=== PATIENT | female | born 1965 | race Caucasian/White ===

== ENCOUNTER 2021-08-31 09:22 | Outpatient (CLI) | payer OTHER, SELFPAY ==
[2021-09-01 10:51] LABS: Follicle Stimulating Hormone 73.9 IU/L
[2021-09-02 01:21] LABS: Prolactin 6.4 ng/mL (2.8-29.2)
== END 2021-08-31 09:23 | disposition home or self-care (01) ==
PROVIDERS: PCP Family Medicine; Visit Provider Registered Nurse
DX: N93.9 Abnormal uterine and vaginal bleeding, unspecified (principal); R93.89 Abnormal findings on diagnostic imaging of other specified body structures; N83.201 Unspecified ovarian cyst, right side
CPT/HCPCS: 83001; 84146; 84443

== ENCOUNTER 2021-09-05 15:00 | Outpatient (CLI) | payer OTHER, SELFPAY ==
--- NOTE | 2021-09-05 15:00 | CRLHL7_ITS ---
For Patients: As a result of the Century Cures Act, medical imaging exams and procedure reports are released immediately into your electronic medical record. You may view this report before your referring provider. If you have questions, please contact your health care provider. INDICATION: Irregular uterine and vaginal bleeding COMPARISON: none TECHNIQUE: 2D mohr scale and color Doppler images were acquired of the pelvis using a transabdominal and transvaginal approach. Examination was technically difficult due to incomplete bladder distension on the transabdominal exam and shadowing on the transvaginal exam. FINDINGS: Sonographic images demonstrate a normal size and smooth outer contour of the uterus. Uterus measures 8.3 cm in length by 5.1 cm in AP diameter by 5.8 cm in transverse dimension. The myometrium has a heterogeneous echotexture. Small left-sided intramural fibroid is present measuring 1 centimeter. The endometrial lining appears thickened and heterogeneous and measures 13 mm in composite thickness. Hypoechoic cervical nabothian cyst is present measuring 8 millimeters. Ill-defined area of increased echogenicity within the left endocervix measuring 1.1 x 2.2 x 2.0 cm. The right ovary measures 3.9 x 3.1 x 3.1 cm in size and the left ovary is not visualized. The right ovary demonstrates normal arterial and venous blood flow on color Doppler analysis. Right ovarian cysts are present measuring 2.2 cm and 1.7 cm. There are no suspicious fluid collections within the cul-de-sac. IMPRESSION: Thickened and heterogeneous endometrium measuring 13 millimeters. Ill-defined area of increased echogenicity within the left endocervical region measuring 2.2 cm. Recommend correlation with Pap smear. Incidental complex right-sided cervical nabothian cyst, small left mid uterine intramural fibroid and right ovarian cysts. Dictated by Shaquille Celeste MD @ 09/05/2021 4:10:41 PM (Electronically Signed)
== END 2021-09-05 15:01 | disposition home or self-care (01) ==
LOC: US 15:01
PROVIDERS: PCP Family Medicine; Visit Provider Registered Nurse
DX: N93.9 Abnormal uterine and vaginal bleeding, unspecified (principal); R93.89 Abnormal findings on diagnostic imaging of other specified body structures; D25.1 Intramural leiomyoma of uterus; N83.201 Unspecified ovarian cyst, right side
CPT/HCPCS: 76830; 76856

== ENCOUNTER 2021-09-22 10:40 | Outpatient (CLI) | payer OTHER, SELFPAY | END 2021-09-22 10:41 | disposition home or self-care (01) | LOC: LONREF 10:41 | PROVIDERS: PCP Family Medicine; Visit Provider Obstetrics & Gynecology | DX: R31.9 Hematuria, unspecified (principal) | CPT/HCPCS: 87086 ==

== ENCOUNTER 2021-10-06 07:27 | Day surgery (SDC) | payer OTHER, SELFPAY ==
[2021-10-06 07:48] LABS: Ur HCG Qualitative* Negative (Negative)
[2021-10-06 07:50] VITALS: BP 118/80; PULSE 67; RESP 16; TEMP 36.9; O2SAT 97
[2021-10-06 07:51] VITALS: BMI 31.8
[2021-10-06] MEDS: LACTATED RINGERS 1000 ML 1,000 ML 100 ML IV (08:00)
[2021-10-06] MEDS: SODIUM CHLORIDE 0.9 % (FLUSH) 10 ML SYRINGE IVF (08:03)
--- NOTE | 2021-10-06 09:45 | W.PM.GYNPROC ---
Procedure Note Date Seen: 10/06/21 Procedure Details: PREOPERATIVE DIAGNOSIS: 1. Abnormal uterine bleeding 2. Thickened endometrial lining by ultrasound POSTOPERATIVE DIAGNOSIS: 1. Abnormal uterine bleeding 2. Thickened endometrial lining by ultrasound NAME OF PROCEDURE: 1. Hysteroscopy. 2. D and C 3. TruCkear Polypectomy. SURGEON: Rafael. ANESTHESIA: Monitored anesthesia care and paracervical block. COMPLICATIONS: None.. ESTIMATED BLOOD LOSS: <10 mL. FINDINGS: Thickened polypoid-appearing endometrium along the anterior and posterior aspects of the endometrial cavity. PATHOLOGY SPECIMENS: 1. Endometrial tissue obtained with the TruClear morcellator and curettage, sent as a single specimen. PROCEDURE: After obtaining informed consent, the patient was taken to the operating room where she received monitored anesthesia care. She was prepared and draped in the normal sterile fashion, in the dorsal lithotomy position. An open-sided bivalve speculum was introduced into the vagina and the cervix visualized. The anterior lip of the cervix was grasped with a single-tooth tenaculum for traction. A paracervical block was then administered using a total of 20 mL of a 50/50 mixture of 0.25% Marcaine and 1% lidocaine plain. The uterus was gently sounded. Sound length was 7 cm. The cervix was gently dilated to a # 6 Hegar dilator. A hysteroscope was then advanced under direct visualization through the cervix into the uterine cavity. Sterile normal saline was used as distending medium. The uterine cavity was carefully inspected with the findings noted above. Pictures were taken for documentation purposes. The TruClear soft tissue mini morcellator was inserted through the operating channel in the hysteroscope. The morcellator was used to remove the anterior and posterior polypoid in its entirety. The hysteroscope was then removed. The endometrial lining was then sharply curetted. The hysteroscope was removed. The tenaculum was removed. There was little bleeding from the tenaculum site, which was controlled with direct pressure sponge stick. All instruments were then removed. The patient tolerated the procedure well. Sponge, lap, needle, and instrument counts reported as correct x2. The patient was taken to the recovery room awake in a stable condition.
[2021-10-06] MEDS: BUPIVACAINE 0.25% 30 ML 10 ML INJECTION (10:23)
[2021-10-06] MEDS: LIDOCAINE 1% 20 ML VIAL 10 ML INJECTION (10:23)
--- NOTE | 2021-10-06 10:34 | SUR.OPER ---
Patient positioned supine on OR #4 bed. Pt. legs then moved into the lithotomy position for the procedure. Perioperative team supported arms bilaterally on arm boards. ?Final approval of positioning by surgeon. Continuous irrigation of the uterus with saline during the procedure.
[2021-10-06 10:45] VITALS: BP 130/84; PULSE 54; RESP 16; TEMP 36.4; O2SAT 99
--- NOTE | 2021-10-06 10:45 | W.ANESCHARGE ---
Anesthesia Charges Start Date/Time Anesthesia Start Date: 10/06/21 Anesthesia Start Time: 09:52 Stop Date/Time Anesthesia Stop Date: 10/06/21 Anesthesia Stop Time: 10:45 Summary Emergency: No
--- NOTE | 2021-10-06 10:50 | W.ANESCHARGE ---
Anesthesia Charges Start Date/Time Anesthesia Start Date: 10/06/21 Anesthesia Start Time: 09:52 Stop Date/Time Anesthesia Stop Date: 10/06/21 Anesthesia Stop Time: 10:45 Summary Emergency: No
[2021-10-06 11:00] VITALS: BP 118/79; PULSE 52; RESP 16; O2SAT 99
[2021-10-06 11:15] VITALS: BP 106/82; PULSE 56; RESP 16; O2SAT 99
== END 2021-10-06 11:38 | disposition home or self-care (01) ==
PROVIDERS: PCP Family Medicine; Visit Provider Obstetrics & Gynecology
PROC: 0UDB8ZZ Extraction of Endometrium, Via Natural or Artificial Opening Endoscopic (ICD-10-PCS; CPT 58558; principal; 2021-10-06 08:55)
DX: N93.8 Other specified abnormal uterine and vaginal bleeding (principal); N84.0 Polyp of corpus uteri; R93.89 Abnormal findings on diagnostic imaging of other specified body structures
CPT/HCPCS: 58558; 81025; 88305; 952; J1100; J1885; J2250; J2405; J2704; J3010; J3490; J7120

== ENCOUNTER 2021-10-23 14:16 | Outpatient (CLI) | payer OTHER, SELFPAY ==
--- OUTSIDE RECORDS SUMMARY | 2021-10-23 08:05 | XMS_ITS | Clinical Summary ---
:1965 Author Organization [employer] [place] [address] Care Team Providers Name Role Phone Rohit Alejo MD Primary Care Provider [phone] Allergies Active Allergy Reactions Severity Noted Date Comments Doxycycline Rash 04/30/2006 Medications Medication Sig Dispensed Refills Start Date End Date Status acetaminophen Take 1 tablet by 60 tablet 0 10/28/2009 Active (TYLENOL EXTRA mouth every 6 hours STRGTH) 500 mg if needed. Max tabletIndications: acetaminophen dose: Pain in joint, 4000mg in 24 hrs. pelvic region and thigh ergocalciferol Take 1 capsule by 12 capsule 3 02/15/2011 Active (VITAMIN D) 50,000 mouth once weekly. unit One tablet weekly capsuleIndications: for 8 weeks, then Vitamin D deficiency monthly thereafter citalopram (CELEXA) Take 1.5 tablets by 45 tablet 0 08/27/2012 Active 10 mg mouth every tabletIndications: morning. TAKE 1 AND Anxiety state, 1/2 TABLET DAILY unspecified, Major depressive disorder, recurrent episode, unspecified buPROPion Take 3 tablets by 90 tablet 0 08/29/2012 A ctive (WELLBUTRIN XL) 150 mouth every mg Extended-Release morning. tabletIndications: Anxiety state, unspecified, Major depressive disorder, recurrent episode, unspecified Active Problems Problem Noted Date Major depressive disorder, recurrent episode, unspecif ied 08/07/2011 Vitamin D deficiency 04/21/2010 Pain in joint, pelvic region and thigh 10/28/2009 CKD (chronic kidney disease) stage 3, GFR 30-59 ml/min 10/24/2009 Premenstrual tension syndromes 09/30/2007 Anxiety state, unspecified Resolved Problems Problem Noted Date Resolved Date Dysthymia 11/05/2008 04/18/2010 Depressive disorder, not elsewhere classified 08/07/2011 Encounters Date Type Specialty Care Team Description 10/06/2021 Lab Requisition Tila Hall MD 08/31/2021 Lab Requisition Valery Sewell NP 08/31/2021 Lab Requisition Valery Sewell NP from Last 3 Months Immunizations Name Administration Dates Next Due Td (Age >=7 Years) 03/29/2006 Family History Medical History Relation Name Comments Arthritis Father Psychiatric illness Father Other Maternal Aunt Psychiatric illness Maternal Grandfather Psychiatric illness Maternal Grandmother Psychiatric illness Mother Diabetes Paternal Grandfather Psychiatric illness Paternal Grandfather Arthritis Paternal Grandmother Psychiatric illness Paternal Grandmother Diabetes Paternal Uncle Psychiatric illness Sister 1 Cancer-breast Sister 2 age 38 Psychiatric illness Son Relation Name Status Comments Father Maternal Aunt Maternal Grandfather Maternal Grandmother Mother Paternal Grandfather Paternal Grandmother Paternal Uncle Sister 1 Sister 2 Son Social History Tobacco Use Types Packs/Day Years Used Date Never Smoker Smokeless Tobacco: Never Used Tobacco Cessation: Counseling Given: Yes Alcohol Use Standard Drinks/Week Comments No 0 (1 standard drink = 0.6 oz pure alcoho l) Sex Assigned at Date Recorded Not on file Obstetrics History Para Term AB IAB SAB Ectopic Multiple Living Live Births 2 2 Date Outcome GA Total Labor/2nd/3rd Weight Sex Delivery Anes PTL Allison A 1 A5 Name Clin Labor Para Para Last Filed Vital Signs Vital Sign Reading Time Taken Comments Blood Pressure 118/75 10/08/2013 3:54 PM CDT tower Pulse 79 10/08/2013 3:54 PM CDT Temperature 36.8 ??C (98.2 ??F) 10/08/2013 3:54 PM CDT Respiratory Rate - - Oxygen Saturation 99% 10/08/2013 3:54 PM CDT Inhaled Oxygen Concentration - - Weight 77.5 kg (170 lb 14.4 oz) 10/08/2013 3:54 PM CDT Height 165.1 cm (5' 5) 10/08/2013 3:54 PM CDT Body Mass Index 28.44 10/08/2013 3:54 PM CDT Plan of Treatment Health Maintenance Due Date Last Done Comments COVID-19 vaccine series (#1) 01/08/1968 Tdap 07/07/1978 Depression screening for age 12+ 1979 BMI (ht and wt on same day) for 07/07/1985 age 18+ Hepatitis C screening for age 0507/07/1985 18-79 Colonoscopy through age 75 07/07/2012 Mammogram for age 45-75 07/07/2012 04/18/2010, 10/15/2008, 10/08/2006 Lipids for age 45-75 10/20/2014 10/20/2009, 10/15/2008 Tetanus booster 03/29/2016 03/29/2006 Zoster (shingles) series for age 0507/07/2017 50+ (1 of 2) Influenza for age 50-64 10/26/2021 Pap test for age 21-65 08/31/2024 08/31/2021, 08/31/2021, 05/11/2015, Additional history exists Procedures Procedure Name Priority Date/Time Associated Diagnosis Comme nts LAB TRACKING EVENT Routine 10/06/2021 10:26 AM CDT PATH TISSUE EXAM Routine 10/06/2021 10:26 AM Resu lts for this CDT procedure are i n the results section. LAB TRACKING EVENT Routine 08/31/2021 12:00 PM CDT ASSISTANT PROFESSOR OF GEOGRAPHY THIN PREP PAP Routine 08/31/2021 12:00 PM Res ults for this SCREEN IMAGED CDT procedure are in the results section. HPV THIN PREP Routine 08/31/2021 12:00 PM Results for this CDT procedure are i n the results section. LAB TRACKING EVENT Routine 08/31/2021 9:15 AM CDT PATH TISSUE EXAM Routine 08/31/2021 9:15 AM Resul ts for this CDT procedure are i n the results section. from Last 3 Months Results LAB TRACKING EVENT (10/06/2021 10:26 AM CDT)Only the most recent of3 results within the time period is included. Specimen Anatomical Collection Method Collection Time Receive d Time (Source) Location / / Volume Laterality Other (Other) Client Collect / 10/06/2021 10:26 2021 9:55 Unknown AM CDT PM CDT Tila Hall MD LAB BILL ONLY Performing Organization Address City/State/ZIP Code Phon e Number [employer] [address] [place] [address] LABORATORY-CENTRAL 1999 LABORATORY PATH TISSUE EXAM (10/06/2021 10:26 AM CDT)Only the most recent of2 resultswithin the time period is included. Component Value Ref Test Analysis Performed At [facility] gist Range Method Time Signature Case Report Pathology Report ?Case: [id number] ? 10/09/2021 [facility] Authorizing Provider: ??Supp es, Tila Raymond MD ?Collected: ? 10/06/2021 1026 ? 3:25 PM CDT HEALTH Ordering Location: ? [facility] ?Received: ?10/07/2021 0820 ? GER HANSEN Pathologist: ? Kyung Lay MD ? ENTRAL Specimen: ?Endometrial C urettings ? LABORATORY Final A) ENDOMETRIUM, CURETTAGE: 10/09/2021 [facility] JAYMIE Electronically Diagnosis 1. Fragments of benign endometrial polyp(s) 3:25 PM CDT HEALTH signed by Rosanne, 2. Background inactive endometrium LABORATORY-C Kyung Farris, 3. Negative for atypia and malignancy ENTRAL MD on 10/09/2021 LABORATORY at 3:25 P M Clinical Abnormal 10/09/2021 [facility] Information uterine 3:25 PM CDT HEALTH bleeding. LABORATORY-C Thickened ENTRAL endometrial LABORATORY lining by ultrasound. Hysteroscopy demonstrated following: Thickened polypoid appearing endometrium on the anterior and posterior aspects of the endometrial cavity. Endometrial tissue obtained with the TruClear morcellator and curettage, sent as a single specimen. Gross A) Received in formalin, lab eled with the patient's name and endometrial curettings, is a 1.7 x 0.8 x 0.1 cm aggregate of pink-georges mucosa admixed with clotted blood and mucous. The specimen is entirely submitted in one cassette. 10/09/2021 [facility] Description 3:25 PM CDT HEALTH DS 10/07/2021 LABORATORY-C ENTRAL LABORATORY Microscopic The final diagnosis is based on microscopic examination of appropriate sections of all specimens. 10/09/2021 [facility] Description 3:25 PM [facility] LABORATORY-C ENTRAL LABORATORY Additional 10/09/2021 [facility] Information Interpreted at [facility], Central Laboratory - [address], [place] [address] 3:25 PM [facility] LABORATORY-C [facility] LABORATORY Specimen Anatomical Collection Method Collection Time Receive d Time (Source) Location / / Volume Laterality Other 10/06/2021 10:26 10/07/2021 8:20 (Endometrial AM CDT AM CDT Curettings) Tila Hall MD PATHOLOGY/CYTOLOGY Performing Organization Address City/State/ZIP Code Phon e Number [facility] [employer] [address] [place] [address] LABORATORY-CENTRAL 2000 LABORATORY ASSISTANT PROFESSOR OF GEOGRAPHY THIN PREP PAP SCREEN IMAGED (08/31/2021 12:00 PM CDT) Component Value Ref Test Analysis Performed At [facility] Range Method Time Signature Case Report Gynecologic Cytology Report ? Case: [id number] ? 09/18/2021 [facility] Authorizing Provider: ??Valery Shaw NP ?? Collected: ? 08/31/2021 1200 ? 1:08 PM HEALTH Ordering Location: ? [facility] CENTRAL LAB ?Received: ?08/31/2021 1911 ? CDT [place] BORATORY-C First Screen: ? Russ Rayo ? ENTRAL Rescreen: ?Celeste Whelan ? LABORATORY Specimen: ?ASSISTANT PROFESSOR OF GEOGRAPHY ThinPrep Vial Screening, Cervical ? INTERPRETATI NEGATIVE FOR (none) 09/18/2021 [facility] Evelyn ctronically ON/RESULT INTRAEPITHELIAL 1:08 PM HEALTH sign ed by LESION OR CDT LABORATORY-C Celeste Whelan on MALIGNANCY (NIL) ENTRAL 08/26 at LABORATORY 1:08 PM SPECIMEN Satisfactory for evaluation 09/18/2021 [facility] ADEQUACY Endocervical component present 1:08 PM HEALTH CDT LABORATORY-C ENTRAL LABORATORY HPV REQUEST HPV and PAP 09/18/2021 [facility] 1:08 PM HEALTH CDT LABORATORY-C ENTRAL LABORATORY Date of LMP 08/17/2021 09/18/2021 [facility] 1:08 PM HEALTH CDT LABORATORY-C ENTRAL LABORATORY Last Pap 05/11/2015 09/18/2021 [facility] Date 1:08 PM HEALTH CDT LABORATORY-C ENTRAL LABORATORY Last Pap NIL 09/18/2021 [facility] Result 1:08 PM HEALTH CDT LABORATORY-C ENTRAL LABORATORY Abnormal Pap No 09/18/2021 [facility] or Angela Bx 1:08 PM HEALTH in last 5 CDT LABORATORY-C years ENTRAL LABORATORY Menstrual Irregular Periods 09/18/2021 [facility] 1:08 PM HEALTH CDT LABORATORY-C ENTRAL LABORATORY Comment: postmenopausal Angela Bx Done Today No 09/18/2021 1:08 PM CD T [facility] LABORATORY-CENTRAL L ABORATORY Additional Information 09/18/2021 1:08 P M CDT [facility] LABORATORY-CENTRAL L ABORATORY Comment: Interpreted at [facility], Central Laboratory - [address], [place] [address] Automated Review Successful 09/18/2021 1:08 PM CDT [facility] LABORATORY-CENTRAL L ABORATORY Comment: Specimen processed successfully by automated mail clerk bills device, ThinPrep Imaging System, [employer] ANCILLARY TESTING HPV Ordered, 09/18/2021 1:08 PM [facility] ASSISTANT PROFESSOR OF GEOGRAPHY Please see T LABORATORY-CENTRAL separate report LABORATORY Note The pap test is a 09/18/2021 1:08 PM [facility] screening CDT LABORATORY-CENTRAL technique, not a LABORATORY diagnostic procedure. It is used primarily to screen for squamous cancers and precursor lesions. Published studies have shown that it is subject to both false negative and false positive results. The pap test should not be used as the sole means to diagnose or exclude pre-malignant and malignant lesions. Specimen Anatomical Collection Method Collection Time Receive d Time (Source) Location / / Volume Laterality Other (Cervical) 08/31/2021 12:00 022 7:11 PM CDT PM CDT Valery Sewell NP PATHOLOGY/CYTOLOGY Performing Organization Address City/State/ZIP Code Phon e Number [facility] [address] [place] [address] LABORATORY-CENTRAL 2000 LABORATORY HPV HIGH RISK (08/31/2021 12:00 PM CDT) Analysis Performed At Patho logist Time Signature TYPE 16 Negative Negative 09/04/2021 [facility] 2:40 PM CDT LABORATORY-YAIR TRAL LABORATORY TYPE 18 Negative Negative 09/04/2021 [facility] 2:40 PM CDT LABORATORY-YAIR TRAL LABORATORY OTHER HIGH Negative Negative 09/04/2021 [facility] RISK TYPES 2:40 PM CDT LABORATORY-YAIR TRAL LABORATORY Specimen Anatomical Collection Method Collection Time Receive d Time (Source) Location / / Volume Laterality Other (Cervical) 08/31/2021 12:00 022 7:11 PM CDT PM CDT Narrative [facility] LABORATORY-CENTRAL LABORAT ORY - 09/04/2021 2:40 PM CDT HPV types 16, 18, 31, 33, 35, 39, 45, 51, 52, 56, 58, 59, 66 and 68 DNA were undetectable or below the pre-set threshold. Methodology: [employer] Laura 4800 HPV Test Valery Sewell NP MICROBIOLOGY Performing Organization Address City/State/ZIP Code Phon e Number [employer] [address] [place] [address] LABORATORY-CENTRAL 2000 LABORATORY from Last 3 Months Care Teams Transplant Nurse Practitioner Relationship Specialty Start Date End Date Rohit Alejo MD PCP - General Family Practice 01/26/11 [address] [place] [address]
[2021-10-23 09:37] LABS: Albumin* 3.9 g/dL (3.3-5.0); Chloride* 106 mmol/L (96-114)
[2021-10-23 09:38] LABS: Potassium* 4.4 mmol/L (3.6-5.1); Sodium* 140 mmol/L (135-149)
[2021-10-23 09:40] LABS: Aspartate Amino Transferase* 23 U/L (12-35); Bilirubin Total* 0.5 mg/dL (0.1-1.5); Blood Urea Nitrogen* 20 mg/dL (7-30); Carbon Dioxide* 25 mmol/L (20-32); Cholesterol* 241 mg/dL (90-199); Creatinine* 1.3 mg/dL (0.5-1.5); Estimated Glomerular Filt Rate 49 ml/min; Total Protein* 6.7 g/dL (6.0-8.3)
[2021-10-23 09:41] LABS: Alanine Aminotransferase* 17 U/L (4-35); Alkaline Phosphatase* 100 U/L (40-150); Calcium* 9.1 mg/dL (8.4-10.6); Glucose* 95 mg/dL (60-115); HDL Cholesterol* 72 mg/dL (>=50); LDL Cholesterol Calculated 127 mg/dL (<100); Triglycerides* 209 mg/dL (40-149)
[2021-10-23 09:52] LABS: Vitamin D 25 Hydroxy* 43 ng/mL (30-80)
[2021-10-23 10:13] LABS: Creatinine Urine 77.5 mg/dL
[2021-10-23 10:16] LABS: Microalbumin Creatinine Ratio 10 mg/g (0-30); Microalbumin Urine < 1 mg/dL
== END 2021-10-23 14:17 | disposition home or self-care (01) ==
PROVIDERS: PCP Family Medicine; Visit Provider Family Medicine
DX: E55.9 Vitamin D deficiency, unspecified (principal); E78.5 Hyperlipidemia, unspecified; N18.9 Chronic kidney disease, unspecified; R53.83 Other fatigue
CPT/HCPCS: 80053; 80061; 82043; 82306; 82570; 84443

== ENCOUNTER 2022-06-29 12:31 | Outpatient (CLI) | payer BC, SELFPAY | END 2022-06-29 12:32 | disposition home or self-care (01) | PROVIDERS: PCP Family Medicine; Visit Provider Family Medicine | DX: R31.0 Gross hematuria (principal); R53.83 Other fatigue; N18.30 Chronic kidney disease, stage 3 unspecified; R30.0 Dysuria | CPT/HCPCS: 80053; 87086 ==

== ENCOUNTER 2022-10-05 10:30 | Outpatient (CLI) | payer BC, SELFPAY ==
--- NOTE | 2022-10-05 10:45 | CRLHL7_ITS ---
For Patients: As a result of the Cures Act, medical imaging exams and procedure reports are released immediately into your electronic medical record. You may view this report before your referring provider. If you have questions, please contact your health care provider. BILATERAL DIGITAL SCREENING MAMMOGRAM WITH TOMOSYNTHESIS AND COMPUTER-AIDED DETECTION CLINICAL HISTORY: Routine screening exam. COMPARISON: 05/12/2020, 06/13/2017, 05/30/2016, 05/13/2015. TECHNIQUE: Digital mammogram in CC and MLO projections including computer-aided detection (CAD). Tomosynthesis utilized. BREAST COMPOSITION: The breasts are heterogeneously dense, which may obscure small masses. FINDINGS: RIGHT Breast: No suspicious findings. LEFT Breast: Focal asymmetric density within the lateral LEFT breast 5 cm from the nipple. IMPRESSION: LEFT breast asymmetry/mass. RECOMMENDATIONS: Additional mammographic views of the LEFT breast including 3D spot compression CC/MLO. LEFT breast ultrasound may also be required. BI-RADS Category 0: Incomplete: Need Additional Imaging Evaluation and/or Prior Mammograms for Comparison The [facility] will contact the patient for follow-up. A lay language report of this examination will be provided to the patient. Dictated by Shaquille Celeste MD @ 10/05/2022 3:20:17 PM jj/Dictated by: Shaquille Celeste MD @ 10/05/2022 3:20:00 PM (Electronically Signed)
== END 2022-10-05 10:31 | disposition home or self-care (01) ==
LOC: MAMMO 10:32
PROVIDERS: PCP Family Medicine; Visit Provider Family Medicine
DX: Z12.31 Encounter for screening mammogram for malignant neoplasm of breast (principal); R92.2 Inconclusive mammogram
CPT/HCPCS: 77063; 77067

== ENCOUNTER 2022-10-09 08:48 | Outpatient (CLI) | payer BC, SELFPAY | END 2022-10-09 08:49 | disposition home or self-care (01) | LOC: NFLDREF 10-11 14:17 | PROVIDERS: PCP Family Medicine; Referring Provider Family Medicine; Visit Provider Internal Medicine Nephrology | DX: N18.31 Chronic kidney disease, stage 3a (principal); R31.0 Gross hematuria | CPT/HCPCS: 80053; 80061; 80069; 82043; 82306; 82570; 87086 ==

== ENCOUNTER 2022-10-10 07:24 | Outpatient (CLI) | payer BC, SELFPAY ==
--- NOTE | 2022-10-10 07:45 | CRLHL7_ITS ---
For Patients: As a result of the Cures Act, medical imaging exams and procedure reports are released immediately into your electronic medical record. You may view this report before your referring provider. If you have questions, please contact your health care provider. DIGITAL DIAGNOSTIC LEFT MAMMOGRAM USING TOMOSYNTHESIS AND COMPUTER-AIDED DETECTION LEFT BREAST ULTRASOUND CLINICAL HISTORY: LEFT breast mass/asymmetry. COMPARISON: 10/05/2022. TECHNIQUE: Digital LEFT mammogram in two projections. Tomosynthesis and CAD utilized. Real-time ultrasound imaging of LEFT breast with imaging documentation. BREAST COMPOSITION: The breast is heterogeneously dense, which may obscure small masses. FINDINGS: 3D spot compression CC/MLO LEFT breast mammogram images submitted. Persistent nodular density within the lower outer quadrant LEFT breast. No architectural distortion or suspicious calcifications. Targeted LEFT breast ultrasound performed at 4 o`clock 5 cm from the nipple. In this location, there is a simple anechoic cyst measuring 5 x 3 millimeters. No suspicious findings. IMPRESSION: Simple cyst LEFT breast 4 o`clock 5 cm from the nipple. No evidence of malignancy. RECOMMENDATIONS: Annual BILATERAL screening mammography. Results and recommendations discussed with the patient. BI-RADS Category 2: Benign A lay language report of this examination will be provided to the patient. Dictated by Shaquille Celeste MD @ 10/10/2022 1:32:32 PM kati/Dictated by: Shaquille Celeste MD @ 10/10/2022 1:32:00 PM (Electronically Signed)
--- NOTE | 2022-10-10 08:15 | CRLHL7_ITS ---
For Patients: As a result of the Cures Act, medical imaging exams and procedure reports are released immediately into your electronic medical record. You may view this report before your referring provider. If you have questions, please contact your health care provider. PLEASE SEE DIGITAL DIAGNOSTIC LEFT MAMMOGRAM PERFORMED SAME DAY CRL:emiliano cummings/Dictated by: Shaquille Celeste MD @ 10/10/2022 1:32:00 PM (Electronically Signed)
== END 2022-10-10 07:25 | disposition home or self-care (01) ==
LOC: MAMMO 07:25
PROVIDERS: PCP Family Medicine; Visit Provider Family Medicine
DX: N63.20 Unspecified lump in the left breast, unspecified quadrant (principal); N60.02 Solitary cyst of left breast; R92.8 Other abnormal and inconclusive findings on diagnostic imaging of breast
CPT/HCPCS: 76642; 77065; G0279

== ENCOUNTER 2024-10-22 11:46 | Outpatient (CLI) | payer BC, SELFPAY | END 2024-10-22 11:47 | disposition home or self-care (01) | PROVIDERS: PCP Family Medicine; Visit Provider Obstetrics & Gynecology | DX: E78.5 Hyperlipidemia, unspecified (principal); E55.9 Vitamin D deficiency, unspecified; R53.83 Other fatigue | CPT/HCPCS: 80053; 80061; 82306; 84443 ==

== ENCOUNTER 2024-11-03 14:00 | Outpatient (CLI) | payer BC, SELFPAY ==
[2024-11-03 15:03] VITALS: BP 144/82; PULSE 92; RESP 18
--- NOTE | 2024-11-03 15:33 | P.STN_ITS ---
Stress Test Note Date Date Seen: 11/03/24 Date of test: 11/03/24 Providers Primary care provider: Cristina Dowell Stress test physician: Benitez Sykes Stress Test Note Stress test ordered: Stress Echo Indication for test: Chest pain Results discussion: This pleasant presents for the above test after discussion the risks benefits side effects she would like to proceed, cardiac stress test medical history port is reviewed in detail. She also does have some shortness of breath, should be another reason for doing the test. Pretest EKG shows normal sinus rhythm. Ventricular rate 65 blood pressure 124/82. She does have some T-wave flattening, and mild ST wave changes noted in V1 and V2. Standard John pr otocol is employed over a time course of 10 minutes 5 seconds and achieved a metabolic equivalent of 11.7 Mets. Maximum heart rate is 157 with a target predicted of 112%. Systolic blood pressure was maximal at 2:40 a.m. a 94. Test is terminated because of fulfillment of protocol, at no point did she have any in do supple chest pain shortness of breath. Some mild ST wave irregularities are reviewed. She recovered normally in the recovery. There were no dysrhythmias Impression: Negative electrographic tracing, subjectively negative, conditioning was felt to be good. Follow up suggested: Await echo interpretation by Cardiology, clinical correlation with this will be needed. Patient left this testing facility in good condition, there were no complications.
== END 2024-11-03 15:04 | disposition home or self-care (01) ==
PROVIDERS: PCP Family Medicine; Visit Provider Family Medicine
DX: R07.89 Other chest pain (principal); R06.02 Shortness of breath
CPT/HCPCS: 93016; 93325; 93351

== ENCOUNTER 2025-01-12 09:54 | Outpatient (CLI) | payer BC, SELFPAY ==
--- NOTE | 2025-01-12 10:15 | CRLHL7_ITS ---
For Patients: As a result of the Century Cures Act, medical imaging exams and procedure reports are released immediately into your electronic medical record. You may view this report before your referring provider. If you have questions, please contact your health care provider. INDICATION: BILATERAL SCREENING MAMMOGRAM, ASYMPTOMATIC 59 Y/O FEMALE COMPARISON: 10/10/2022, 10/05/2022, 05/12/2020 TECHNIQUE: Digital mammogram in CC and MLO projections including computer-aided detection (CAD) and tomosynthesis. BREAST COMPOSITION: There are scattered areas of fibroglandular density. FINDINGS: No suspicious findings. ASSESSMENT: BI-RADS 2 Benign RECOMMENDATION: Annual screening mammogram. A lay language report of this examination will be provided to the patient. Dictated by: Shaquille Celeste MD @ 01/12/2025 11:33:38 (Electronically Signed)
== END 2025-01-12 09:55 | disposition home or self-care (01) ==
LOC: MAMMO 09:54
PROVIDERS: PCP Family Medicine; Visit Provider Obstetrics & Gynecology
DX: Z12.31 Encounter for screening mammogram for malignant neoplasm of breast (principal)
CPT/HCPCS: 77063; 77067